=== PATIENT | female | born 1995 | race Caucasian/White ===

== ENCOUNTER 2018-10-10 02:46 | Emergency (ER) | payer OTHER ==
[~2018-10-10] VITALS: Ht 170.2 cm; Wt 60.3 kg
[2018-10-10 02:50] VITALS: BP 124/88
[2018-10-10] MEDS ORDERED: KETOROLAC 60 MG/2 ML VIAL. IM ONE ×2 (03:00→03:07)
[2018-10-10] MEDS ORDERED: DICL50TA4 PO (03:11)
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
== END 2018-10-10 03:30 | disposition home or self-care (01) ==
LOC: ER 02:46
DX: R51 Headache (principal); G89.11 Acute pain due to trauma; V43.52XA Car driver injured in collision with other type car in traffic accident, initial encounter; Y93.I9 Activity, other involving external motion; Y92.488 Other paved roadways as the place of occurrence of the external cause; Y99.8 Other external cause status
CPT/HCPCS: 96372; 99283; J1885

== ENCOUNTER → 2021-03-07 | Outpatient (CLI) | payer BC ==
[~2021-03-07] MED LIST: DICL50TA4 PO
--- NOTE | 2021-03-07 08:20 | RAD ---
EXAMINATION: US ABDOMEN LIMITED INDICATION: 25 years, Female, right upper quadrant abdominal pain. COMPARISON: None TECHNIQUE: Grayscale, color Doppler and limited spectral Doppler images of the right upper quadrant w ere obtained. FINDINGS: LIVER: SIZE (LENGTH): 15.2 cm. ECHOGENICITY: Normal PARENCHYMA: Homogeneous echotexture. No discrete focal lesion. INTRAHEPATIC BILE DUCTS: Nondilated. PORTAL VEIN: Patent with normal hepatopedal flow. GALLBLADDER: GALLBLADDER WALL THICKNESS: 1.5 mm MORPHOLOGY: Normal morphology. No wall hyperemia or pericholecystic free fluid. LUMEN: Normal. COMMON BILE DUCT DIAMETER: 2.0 mm RIGHT KIDNEY: MEASURES: 13.7 x 5.4 x 5.6 cm. MORPHOLOGY/PARENCHYMA: Normal corticomedullary differentiation with no shadowing calculus or discrete masses. COLLECTING SYSTEM: Mild to moderate hydronephrosis. PANCREAS: VISUALIZED PORTIONS: Head and body APPEARANCE: Within normal limits. OTHER: RETROPERITONEUM, INFERIOR VENA CAVA: Normal caliber. AORTA: Obscured by overlying bowel gas. FLUID:No free fluid. IMPRESSION: 1. 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 2. Unremarkable sonographic appearance of the gallbladder. No biliary ductal dilation. Electronically signed by: Augustina Norman MD (03/07/2021 8:17 AM) [id number]
== END ==
LOC: US 07:42
PROVIDERS: ATTEND Obstetrics & Gynecology
DX: N13.30 Unspecified hydronephrosis (principal)
CPT/HCPCS: 76705